=== PATIENT | male | born 1990 | race Two or more races ===

== ENCOUNTER 2020-03-01 11:31 | Emergency (ER) | payer OTHER ==
[2020-03-01] MEDS ORDERED: HYDROCODONE/ACETAMINOPHEN 5-325 MG TABLET PO ONE (11:47)
[2020-03-01] MEDS ORDERED: DIPH/PERTUSS(ACELL)/TETANUS VAC/PF 0.5 ML SYR (>=10YO) IM ONE (11:47)
--- NOTE | 2020-03-01 11:56 | ER Document Report ---
ED Medical Screen (RME) - General Chief Complaint: Facial Injury Stated Complaint: CHIN LACERATION Time Seen by Provider: 03/01/20 11:46 Mode of Arrival: Ambulatory Information source: Patient - HPI Notes: 03/01/20 11:49 29-year-old male presents emergency room for evaluation of tooth deformity pain at base of teeth with a lip laceration that extends all the way through from a set of pliers that hit him right in lower lip upper chin approximately 3 hours ago. Patient states he was pulling on a wire and lost tension and it hit him back in the face. denies head trauma or change in level consciousness. Reports pain is 4 out of 5. No [id number] medications have been tried. Denies any other area of injury. Patient is unsure when his last tetanus was. I have greeted and performed a rapid initial assessment of this patient. A comprehensive ED assessment and evaluation of the patient, analysis of test results and completion of the medical decision making process will be conducted by additional ED providers. PHYSICAL EXAMINATION: GENERAL: Well-appearing, well-nourished and in no acute distress. HEAD: Atraumatic, normocephalic. ENT: #23,34,25,26 to be displaced at the base of the gum inward. Uvula midline. EYES: Pupils equal round extraocular movements intact, conjunctiva are normal. NECK: Normal range of motion CV: s1, s2 regular LUNGS: No respiratory distress Musculoskeletal: Normal range of motion NEUROLOGICAL: Normal speech, normal gait. SKIN: Warm, Dry, normal turgor, no rashes or lesions noted. A "V" laceration to the lower lip/upper chin that lacerated all the way through, puncturing the lower gingiva of the mouth. - Related Data Allergies/Adverse Reactions: No Known Allergies Allergy (Verified 03/01/20 11:39) Physical Exam - Vital signs Vitals: Temp Pulse Resp BP Pulse Ox 97.7 F 84 12 151/83 H 96 03/01/20 11:37 03/01/20 11:37 03/01/20 11:37 03/01/20 11:37 03/01/20 11:37 Course - Vital Signs Vital signs: Temp Pulse Resp BP Pulse Ox 97.7 F 84 12 151/83 H 96 03/01/20 11:37 03/01/20 11:37 03/01/20 11:37 03/01/20 11:37 03/01/20 11:37
--- NOTE | 2020-03-01 12:42 | RADIOLOGY REPORT (SQ) ---
EXAM DESCRIPTION: CT FACIAL AREA WITHOUT IMAGES COMPLETED DATE/TIME: 03/01/2020 11:02 am REASON FOR STUDY: hit in face w/ tool,teeth deformity, facial wound COMPARISON: None. TECHNIQUE: Noncontrasted images through the facial bones and orbits windowed for bone and soft tissu e. Additional coronal and sagittal reconstructed images reviewed. All images stored on PACS. All CT scanners at this facility use dose modulation, iterative reconstruction, and/or weight based d osing when appropriate to reduce radiation dose to as low as reasonably achievable (ALARA). [facility]: Dose Right [facility]: CareDose [facility]: Dose Right [facility]: Teradose 4D [facility]: [employer] RADIATION DOSE: CT Rad equipment meets quality standard of care and radiation dose reduction techniq ues were employed. CTDIvol: 30.4 mGy. DLP: 616 mGy-cm. mGy. LIMITATIONS: None. FINDINGS: FACIAL BONES: No fracture or bone lesion. ORBITS: Intact. No fracture. Symmetric intact globes and retroorbital soft tissues. PARANASAL SINUSES: Clear. No significant mucosal thickening, mass or fluid. No nasal polyps. Maxill krystyna sinus outlets are patent. SOFT TISSUES: No mass or edema. INFERIOR BRAIN: Limited view. No acute findings. OTHER: There is a broken left mandibular lateral incisor with tiny densities anterior to this tooth. No evidence of involvement of the dental root or alveolar ridge. Broken right 2nd molar with periap ical lucency surrounding the roots. No destructive caries. No alveolar ridge injury. IMPRESSION: 1. Broken left mandibular lateral incisor. No involvement of the alveolar ridge. 2. No facial bone fracture. TECHNICAL DOCUMENTATION: JOB ID: [id number] Quality ID # [id number]: Final reports with documentation of one or more dose reduction techniques (e.g., Au tomated exposure control, adjustment of the mA and/or kV according to patient size, use of iterative reconstruction technique) 2010 [employer] (acquired by [employer])- All Rights Reserved Reading location - IP/workstation name: [email or web address]
[2020-03-01] MEDS ORDERED: LIDOCAINE 1% INJ-PF (10 MG/ML) 30 ML SDV INJ ONE (14:20)
--- NOTE | 2020-03-01 14:58 | ER Document Report ---
ED General - General Chief Complaint: Facial Injury Stated Complaint: CHIN LACERATION Time Seen by Provider: 03/01/20 11:46 Mode of Arrival: Ambulatory - HPI Notes: Chief complaint: Facial injury HPI: Previously healthy 29-year-old male taking no regular medications with no known allergies and last tetanus booster unknown presents with facial injury. Patient states that he was working for [employer] and was pulling a piece of wire under tension with a pair of pliers when the wire broke and struck him in the chin. He sustained a facial laceration as well as injury to several teeth. No loss of consciousness. No neck pain. - Related Data Allergies/Adverse Reactions: No Known Allergies Allergy (Verified 03/01/20 11:39) Past Medical History - General Information source: Patient - Social History Smoking Status: Current Every Day Smoker Chew tobacco use (# tins/day): No Frequency of alcohol use: None Drug Abuse: None Family History: Reviewed & Not Pertinent Patient has homicidal ideation: No Review of Systems - Review of Systems Notes: Constitutional: Negative for fever. HENT: Dental injury as per HPI. Eyes: Negative for visual changes. Cardiovascular: Negative for chest pain. Respiratory: Negative for shortness of breath. Gastrointestinal: Negative for abdominal pain, vomiting or diarrhea. Genitourinary: Negative for dysuria. Musculoskeletal: Negative for back pain. Skin: Negative for rash. Neurological: Negative for headaches, weakness or numbness. 10 point ROS negative except as marked above and in HPI. Physical Exam - Vital signs Vitals: Temp Pulse Resp BP Pulse Ox 97.7 F 84 12 151/83 H 96 03/01/20 11:37 03/01/20 11:37 03/01/20 11:37 03/01/20 11:37 03/01/20 11:37 - Notes Notes: GENERAL: Well-developed well-nourished appearing mildly uncomfortable at this time. SKIN: Good turgor no rashes. HEAD: Patient has a through and through laceration near the midline of the face below the lower lip. On the skin surface is in the shape of a "Joelle-Viktor sign" with clean edges and minimal venous oozing. Total length is approximately 2.0 cm. There is a minimal puncture wound on the mucosal surface and the muscular layer is not clearly visible. EYES: PERRLA. EOMI. Conjunctivae and sclerae clear. EARS: CANALS AND TMS CLEAR. NOSE: CLEAR. MOUTH: Moist mucosa. Patient has grade 1 fractures of the upper central incisor on the left in the lower lateral incisor also on the left. There is no obvious alveolar instability.. No stridor or edema. No drooling. NECK: Supple. No masses or thyromegaly. No adenopathy. Carotids 2+ without bruits. No JVD. BACK: Symmetrical without tenderness. CHEST: Respirations unlabored. Breath sounds clear and symmetrical. HEART: Regular rhythm. No murmur gallop or rub. ABDOMEN: Soft nontender without masses, organomegaly or rebound. Bowel sounds normally active. No bruits. GENITALIA: Deferred. EXTREMITIES: No edema. No calf tenderness. Cap refill less than 1.5 seconds. Dorsalis pedis and posterior tibial pulses 3+ and symmetrical. NEUROLOGICAL: GCS 15. Alert and oriented x3. Normal gait. Fluent speech. Cranial nerves II through XII intact. Sensorimotor and cerebellar normal. Normal tone. PSYCHIATRIC: Appropriate affect. Course - Re-evaluation Re-evalutation: 03/01/20 14:57 Tetanus booster updated. Laceration repaired. Patient is advised he should see a dentist. Further advised he will need suture removal in 3 to 5 days. - Vital Signs Vital signs: Temp Pulse Resp BP Pulse Ox 97.7 F 84 12 151/83 H 96 03/01/20 11:37 03/01/20 11:37 03/01/20 11:37 03/01/20 11:37 03/01/20 11:37 Procedures - Laceration/Wound Repair Mid- Face Wound length (cm): 2.0 Wound's Depth, Shape: Into muscle, Irregular Laceration pre-procedure: Sterile PPE donned, Sterile drapes applied, Shur-Clens applied Anesthetic type: 1% Lidocaine Wound explored: Clean Irrigated w/ Saline (mLs): 250 Wound Repaired With: Sutures Suture Size/Type: 5:0, Nylon Layer Closure?: No Post-procedure wound care: Sterile dressing applied Post-procedure NV exam normal: Yes Complications: No Discharge - Discharge Clinical Impression: Dental fracture Facial laceration Qualifiers: Encounter type: initial encounter Qualified Code(s): S01.81XA - Laceration without foreign body of other part of head, initial encounter Condition: Stable Disposition: HOME, SELF-CARE Instructions: Antibiotic Ointment Protection (OM), Laceration Care (OM), Prophylactic Antibiotic (OM), Tetanus Immunization Given ([facility]) Additional Instructions: Ice packs as needed for pain and swelling. Removal of stitches in 3 to 5 days is recommended. See a dentist as soon as possible. Soft diet. Rinse your mouth 3 times daily with warm salt water. You will be provided a work note for 3 days. You will also be provided a prescription for an antibiotic and pain medication. Prescriptions: Tramadol HCl [Ultram 50 mg Tablet] 50 mg PO Q4HP PRN #12 tab PRN Reason: Amoxicillin 1 tab PO TID #30 tab Forms: Return to Work Referrals: [facility] [Provider Group] - Follow up as needed
[2020-03-01 15:53] VITALS: BP 136/80
== END 2020-03-01 15:53 | disposition home or self-care (01) ==
LOC: ER 11:31
DX: S01.81XA Laceration without foreign body of other part of head, initial encounter (principal); S02.5XXA Fracture of tooth (traumatic), initial encounter for closed fracture; W22.8XXA Striking against or struck by other objects, initial encounter; Y93.H3 Activity, building and construction; Y99.0 Civilian activity done for income or pay; Z23 Encounter for immunization
CPT/HCPCS: 99283; 90471; 70486; 90715; 12011; J3490